=== PATIENT | male | born 1985 | race Caucasian/White ===

== ENCOUNTER 2018-11-28 18:19 | Emergency (ER) | payer BC ==
--- NOTE | 2018-11-28 19:01 | Emergency Department Record ---
History of Present Illness - General Chief Complaint: Knee injury Stated Complaint: R KNEE INJURY Time Seen by Provider: 11/28/18 18:57 Source: Patient Mode of Arrival: Ambulatory Limitations: No limitations - History of Present Illness Initial Comments: 33 yo male presents to ED for evaluation of right knee pain following an injury at work several weeks ago. 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 Patient reports intermittent swelling and pain symptoms following his injury, has been using an OTC knee brace following injury. Patient denies pain with weight bearing, but worsens with activity. Patient denies health problems at his baseline. MD Complaint: Knee injury Onset/Timin -: Month(s) Injury: Knee: Right Type of Injury: Unknown Place: Work Severity: Mild Severity scale (1-10): 5 Improves With: Nothing Worsens With: Nothing Context: Other Associated Symptoms: Snap/pop sensation, Ambulatory - Related Data Home Medications Medication Instructions Recorded Confirmed Last Taken No Home Med [NO HOME MEDS] 11/28/18 11/28/18 Unknown Allergies Allergy/AdvReac Type Severity Reaction Status Date / Time naproxen Allergy ABDOMINAL Verified 11/28/18 18:40 PAIN Travel Screening - Travel/Exposure Within Last 30 Days Have you traveled within the last 30 days?: No Review of Systems Constitutional: Denies: Chills, Fever, Malaise, Night sweats Eyes: Denies: Eye discharge, Eye pain ENT: Denies: Congestion, Ear pain, Epistaxis Respiratory: Denies: Cough, Dyspnea Cardiovascular: Denies: Chest pain, Dyspnea on exertion Endocrine: Denies: Fatigue, Heat or cold intolerance Gastrointestinal: Denies: Abdominal pain, Nausea, Vomiting Genitourinary: Denies: Incontinence, Retention Musculoskeletal: Reports: Arthralgia, Joint swelling. Denies: Back pain, Gout Skin: Denies: Bruising, Change in color Neurological: Denies: Abnormal gait, Confusion, Headache, Tingling, Tremors Psychiatric: Denies: Anxiety Hematological/Lymphatic: Denies: Anemia, Blood Clots Past Medical History - SOCIAL HISTORY Smoking Status: Current every day smoker - RESPIRATORY Hx Respiratory Disorders: No - CARDIOVASCULAR Hx Cardio Disorders: No - NEURO Hx Neuro Disorders: No - GI Hx GI Disorders: No - Hx Genitourinary Disorders: No - ENDOCRINE Hx Endocrine Disorders: No - MUSCULOSKELETAL Hx Musculoskeletal Disorders: No - PSYCH Hx Psych Problems: No - HEMATOLOGY/ONCOLOGY Hx Hematology/Oncology Disorders: No Family Medical History Any Significant Family History?: No Physical Exam - General General Appearance: Alert, Oriented x3, Cooperative, Mild distress Limitations: No limitations - Head Head exam: Atraumatic, Normocephalic, Normal inspection Head exam detail: negative: Abrasion, Contusion, Cornejo's sign, General tenderness, Hematoma, Laceration - Eye Eye exam: Normal appearance. negative: Conjunctival injection, Periorbital swelling, Periorbital tenderness, Scleral icterus - ENT Ear exam: negative: Auricular hematoma, Auricular trauma Nasal Exam: negative: Active bleeding, Discharge, Dried blood, Foreign body Mouth exam: negative: Drooling, Laceration, Muffled voice, Tongue elevation - Neck Neck exam: Normal inspection. negative: Meningismus, Tenderness - Respiratory Respiratory exam: Normal lung sounds bilaterally. negative: Respiratory distress, Rhonchi, Stridor, Wheezes - Cardiovascular Cardiovascular Exam: Regular rate, Normal rhythm, Normal heart sounds - GI/Abdominal GI/Abdominal exam: Soft. negative: Rebound, Rigid, Tenderness - Rectal Rectal exam: Deferred - exam: Deferred - Extremities Extremities exam: Full ROM, Other (Mild TTP along the posterior/lateral aspect of the right knee, no effusion noted on examination. Ligaments are stable on examination. Strong distal pedis pulse, compartments of the right lower extremity are soft on examination.). negative: Calf tenderness, Pedal edema, Tenderness - Back Back exam: Denies: CVA tenderness (R), CVA tenderness (L) - Neurological Neurological exam: Alert, Normal gait, Oriented X3 - Psychiatric Psychiatric exam: Normal affect, Normal mood - Skin Skin exam: Normal color. negative: Abrasion Type of lesion: negative: abrasion Course Vital Signs 11/28/18 18:36 Temperature 98.7 F Pulse Rate 99 H Respiratory 20 Rate Blood Pressure 150/83 Pulse Ox 98 - Reevaluation(s) Reevaluation #1: 11/28/18 19:05 Patient seen and examined, no evidence for acute fracture or dislocation Radiographs are unlikely to be of benefit based on my examination. Will arrange for orthopedic follow-up next week with Dr. Ledezma and possible MRI following evaluation. Patient does have a knee brace that he is using as well, knee immobilizer and crutches are not deemed necessary following my discussion with the patient. Patient was instructed to continue use of his knee brace, ice, and ibuprofen as needed. Patient appears stable for discharge at this time. Disposition Disposition: Discharge Clinical Impression: Knee pain, right Qualifiers: Chronicity: acute Qualified Code(s): M25.561 - Pain in right knee Disposition: Home, Self-Care Condition: (2) Stable Instructions: Knee Sprain (ED) Additional Instructions: Return to ED if your symptoms worsen or if you have any concerns. Follow-up with Dr. Ledezma next week in the [facility] for further evaluation of your knee pain symptoms. Ibuprofen, knee brace as discussed. Referrals: JÚNIOR LEDEZMA [DOCTOR OF OSTEOPATH] - [facility] [Provider Group] Forms: Patient Portal Access Time of Disposition: 19:01 Quality - Quality Measures Quality Measures: N/A - Blood Pressure Screening Does Patient Have Any of the Following: No Blood Pressure Classification: Pre-Hypertensive BP Reading Systolic Measurement: 150 Diastolic Measurement: 83 Screening for High Blood Pressure: < Pre-Hypertensive BP, F/U Documented > [[id number]] Pre-Hypertensive Follow-up Interventions: Referral to alternative/primary care provider.
== END 2018-11-28 19:20 | disposition home or self-care (01) ==
LOC: ER 18:19
DX: M25.561 Pain in right knee (principal); X50.3XXA Overexertion from repetitive movements, initial encounter; F17.210 Nicotine dependence, cigarettes, uncomplicated; Y92.63 Factory as the place of occurrence of the external cause; Y99.0 Civilian activity done for income or pay
CPT/HCPCS: 99282